=== PATIENT | male | born 1975 | race Caucasian/White ===

== ENCOUNTER 2017-05-30 20:35 | Emergency (ER) | payer SELFPAY ==
[~2017-05-30] VITALS: Ht 177.8 cm; Wt 80.8 kg
[~2017-05-30 20:35] MED LIST: AMOXICILLIN500 MG OR; GENTAK0.32 OU; LORTAB5 PO; NO HOME MEDS
[2017-05-30 21:13] LABS: HEMATOCRIT 47.1 % (39.0-50.0); HEMOGLOBIN 16.1 g/dl (14.0-18.0); IMMATURE GRANULOCYTES 0.3 % (0.0-1.0); MEAN CELL VOLUME 93.1 fL CALC (80.0-100.0); MEAN CORPUSCULAR HGB 31.8 pG CALC (26.0-32.0); MEAN CORPUSCULAR HGB CONC 34.2 g/L CALC (32.0-36.0); NEUT# 11.57 thou/uL (1.82-7.42); RED BLOOD COUNT 5.06 mill/uL (4.70-6.10); RED CELL DISTRI WIDTH 13.5 % (11.5-15.5)
[2017-05-30 21:25] LABS: ALBUMIN 4.2 g/dL (3.2-5.0); ALKALINE PHOSPHATASE 73 u/l (38-126); AMYLASE 170 u/l (30-110); ANION GAP 15 (6-22 (CALC)); BILIRUBIN, TOTAL 0.4 mg/dL (0.0-1.4); BUN 19 mg/dL (9-20); BUN/CREATININE RATIO 15 (12-20 (CALC)); CALCIUM 9.1 mg/dL (8.4-10.2); CARBON DIOXIDE 24 mmol/l (22-30); CHLORIDE 106 mmol/l (95-108); CREATININE 1.3 mg/dL (0.7-1.3); GFR > 60 ML/MIN (>=60 (CALC)); GFR FOR AFR.AMER. > 60 ML/MIN (>=60 (CALC)); GLUCOSE 118 mg/dL (75-110); LIPASE 1547 u/l (23-300); POTASSIUM 4.5 mmol/l (3.5-5.1); SGOT/AST 20 u/l (17-59); SGPT/ALT 33 u/l (21-72); SODIUM 141 mmol/l (137-146)
[2017-05-30 21:52] LABS: MYOGLOBIN 49 ng/mL (0 - 121)
[2017-05-30 23:10] VITALS: BP 122/80
== END 2017-05-30 23:10 | disposition left against medical advice (07) | DRG 391 ==
LOC: ED 20:35
PROVIDERS: Emergency Medicine
DX: R10.13 Epigastric pain (principal); K85.90 Acute pancreatitis without necrosis or infection, unspecified; R10.12 Left upper quadrant pain; R10.11 Right upper quadrant pain

== ENCOUNTER 2017-07-18 20:39 | Emergency (ER) | payer SELFPAY ==
[~2017-07-18] VITALS: Ht 177.8 cm; Wt 81.0 kg
[2017-07-18 21:39] VITALS: BP 112/73
== END 2017-07-18 21:39 | disposition home or self-care (01) | DRG 605 ==
LOC: ED 20:39
PROC: 0HQ0XZZ Repair Scalp Skin, External Approach (ICD-10-PCS; principal; 2017-07-18)
DX: S01.01XA Laceration without foreign body of scalp, initial encounter (principal); W26.8XXA Contact with other sharp object(s), not elsewhere classified, initial encounter; Y93.H2 Activity, gardening and landscaping; Y92.007 Garden or yard of unspecified non-institutional (private) residence as the place of occurrence of the external cause

== ENCOUNTER 2017-07-27 20:52 | Emergency (ER) | payer SELFPAY ==
[~2017-07-27] VITALS: Ht 177.8 cm; Wt 81.8 kg
[2017-07-27 21:26] VITALS: BP 115/76
== END 2017-07-27 21:30 | disposition home or self-care (01) | DRG 950 ==
LOC: ED 20:52
DX: S01.01XD Laceration without foreign body of scalp, subsequent encounter (principal); Z48.02 Encounter for removal of sutures

== ENCOUNTER 2018-04-13 18:47 | Emergency (ER) | payer SELFPAY ==
[~2018-04-13] VITALS: Ht 177.8 cm; Wt 82.0 kg
[2018-04-13 20:30] LABS: HEMATOCRIT 48.5 % (39.0-50.0); HEMOGLOBIN 16.3 g/dl (14.0-18.0); IMMATURE GRANULOCYTES 0.5 % (0.0-1.0); MEAN CELL VOLUME 92.7 fL CALC (80.0-100.0); MEAN CORPUSCULAR HGB 31.2 pG CALC (26.0-32.0); MEAN CORPUSCULAR HGB CONC 33.6 g/L CALC (32.0-36.0); NEUT# 11.49 thou/uL (1.82-7.42); RED BLOOD COUNT 5.23 mill/uL (4.70-6.10); RED CELL DISTRI WIDTH 13.3 % (11.5-15.5)
[2018-04-13 20:44] LABS: ALBUMIN 4.4 g/dL (3.2-5.0); ALKALINE PHOSPHATASE 82 u/l (38-126); ANION GAP 12 (6-22 (CALC)); BILIRUBIN, TOTAL 0.3 mg/dL (0.0-1.4); BUN 18 mg/dL (9-20); BUN/CREATININE RATIO 17 (12-20 (CALC)); CARBON DIOXIDE 26 mmol/l (22-30); CHLORIDE 103 mmol/l (95-108); GFR > 60 ML/MIN (>=60 (CALC)); GFR FOR AFR.AMER. > 60 ML/MIN (>=60 (CALC)); SGOT/AST 33 u/l (17-59); SGPT/ALT 67 u/l (21-72); SODIUM 137 mmol/l (137-146); TOTAL PROTEIN 7.8 g/dL (6.3-8.2)
[2018-04-13 20:52] LABS: MYOGLOBIN 55 ng/mL (0 - 121)
[2018-04-13 21:14] LABS: URINE BILIRUBIN - DIPSTICK NEGATIVE (NEGATIVE); URINE BLOOD DIPSTICK TRACE-INTACT (NEGATIVE); URINE COLOR YELLOW; URINE GLUCOSE - DIPSTICK NEGATIVE (NEGATIVE); URINE KETONE NEGATIVE (NEGATIVE); URINE LEUK ESTERASE NEGATIVE (NEGATIVE); URINE NITRITE - DIPSTICK NEGATIVE (Negative); URINE PROTEIN - DIPSTICK NEGATIVE (NEG-TRACE); URINE SPECIFIC GRAVITY >=1.030; URINE UROBILINOGEN - DIPSTICK 0.2 E.U./dL (0.2)
[2018-04-13 21:15] LABS: URINE CLARITY CLEAR
[2018-04-13 21:17] LABS: BARBITURATES NEGATIVE (NEGATIVE); COCAINE NEGATIVE (NEGATIVE); METHADONE NEGATIVE (NEGATIVE); OXCYCODONE NEGATIVE (NEGATIVE); TETRAHYDROCANNABIONOL POSITIVE (NEGATIVE); TRICYLIC ANTIDEPRESSANTS NEGATIVE (NEGATIVE)
[2018-04-13 22:05] VITALS: BP 111/71
== END 2018-04-13 22:05 | disposition home or self-care (01) | DRG 312 ==
LOC: ED 18:47
PROVIDERS: Emergency Medicine
DX: R55 Syncope and collapse (principal); F17.290 Nicotine dependence, other tobacco product, uncomplicated; Y92.007 Garden or yard of unspecified non-institutional (private) residence as the place of occurrence of the external cause

== ENCOUNTER 2019-05-08 18:49 | Emergency (ER) | payer SELFPAY ==
[~2019-05-08] VITALS: Ht 177.8 cm; Wt 84.0 kg
[2019-05-08] MEDS ORDERED: LORTAB 1010 MG PO (19:16)
[2019-05-08] MEDS ORDERED: AMOXICILLIN500 MG PO ×2 (19:16→19:24)
[2019-05-08 19:25] VITALS: BP 127/88
== END 2019-05-08 19:25 | disposition home or self-care (01) | DRG 159 ==
LOC: ED 18:49
DX: K05.219 Aggressive periodontitis, localized, unspecified severity (principal); K08.409 Partial loss of teeth, unspecified cause, unspecified class; F17.210 Nicotine dependence, cigarettes, uncomplicated

== ENCOUNTER 2021-12-21 00:01 | Emergency (ER) | payer MEDICAID ==
[~2021-12-21] VITALS: Ht 177.8 cm; Wt 95.0 kg
[~2021-12-21 00:01] MED LIST changes: +AMOXICILLIN500 MG PO; +LORTAB 1010 MG PO
[2021-12-21] MEDS ORDERED: AMOXICILLIN500 MG PO (00:39)
[2021-12-21] MEDS ORDERED: MOTRIN800 MG PO (00:39)
[2021-12-21] MEDS ORDERED: TRAMADOL HCL50 MG PO (00:39)
[2021-12-21 01:05] VITALS: BP 136/95
== END 2021-12-21 01:05 | disposition home or self-care (01) ==
LOC: ED 00:01
DX: K04.7 Periapical abscess without sinus (principal); K02.9 Dental caries, unspecified; F17.200 Nicotine dependence, unspecified, uncomplicated